=== PATIENT | female | born 1990 | race Caucasian/White ===

== ENCOUNTER → 2018-09-02 | Outpatient (CLI) | payer OTHER ==
[~2018-09-02] MED LIST: PREN-127 PO
[2018-09-02 08:56] LABS: PLATELET COUNT, AUTOMATED 171 K/uL (150-450)
== END ==
LOC: LAB 07:53
PROVIDERS: ATTEND Obstetrics & Gynecology
DX: Z34.90 Encounter for supervision of normal pregnancy, unspecified, unspecified trimester (principal)
CPT/HCPCS: 36415; 81001; 85025; 86592; 86703; 86762; 86850; 86900; 86901; 87088; 87340

== ENCOUNTER → 2018-12-12 | Outpatient (CLI) | payer OTHER ==
--- NOTE | 2018-12-12 12:53 | RADIOLOGY IMAGING REPORT ---
FACILITY: [facility] PATIENT NAME: Josi Hobson : 1990 MR: [id number] V: [id number] EXAM DATE: ORDERING PHYSICIAN: LISA MURRAY TECHNOLOGIST: [place] [facility] [place] Josi Hobson : 1990 Visit/Account:[id number] Date of Sevice: 12/12/2018 EXAMINATION: Transabdominal OB Ultrasound >14 wks with Anatomic Survey 12/12/2018 10:10 AM History: anatomy COMPARISON: None FINDINGS: Intrauterine gestations: one presentation: breech heart rate: 147 bpm Amniotic fluid index: 13.9 cm Largest amniotic fluid pocket 3.9 cm Placenta: Posterior and right lateral without previa. Placental cord insertion is normal. Uterus: gravid, otherwise normal Maternal adnexa: negative Cervix: closed Gestational Parameters: BPD: 5.1 cm 21 weeks 4 days, 53rd percentile HC: 19.4 cm 21 weeks 5 days, 47th percentile AC: 17.7 cm 22 weeks 5 days, 79th percentile FL: 3.7 cm 22 weeks 0 days, 58th percentile Average ultrasound age (AUA): 22 weeks 0 days Estimated gestational age by LMP: 21 weeks 3 days Estimated weight (EFW): 484 grams +/- 71 grams EFW for LMP percentile: 83 Anatomic Survey: Intracranial structures, nose and lips, 4-chamber heart and outflow tracts, stomach, kidneys, urinary bladder, spine, 3-vessel cord and cord insertion are unremarkable. Two upper and two lower extremiti es visualized. IMPRESSION: 1. Single live intrauterine gestation; estimated ultrasound age 22 weeks 0 days (ALEE 04/17/2019), 4 da ys ahead of clinical dates which is within range of error. 2. Unremarkable anatomic survey. Report Dictated By: Checo Diallo MD at 12/12/2018 12:39 PM Report E-Signed By: Checo Diallo MD at 12/12/2018 12:48 PM WSN:COSTA
== END ==
LOC: RAD 09:58
PROVIDERS: ATTEND Obstetrics & Gynecology
DX: Z02.9 Encounter for administrative examinations, unspecified (principal)

== ENCOUNTER → 2019-01-29 | Outpatient (CLI) | payer OTHER ==
[~2019-01-29] MED LIST changes: +DIPH0.5S2 IM
[2019-01-29 16:47] LABS: PLATELET COUNT, AUTOMATED 193 K/uL (150-450)
== END ==
LOC: LAB 15:24
PROVIDERS: ATTEND Obstetrics & Gynecology
DX: Z34.03 Encounter for supervision of normal first pregnancy, third trimester (principal)
CPT/HCPCS: 36415; 82950; 85025

== ENCOUNTER 2019-03-09 11:47 | Outpatient (CLI) | payer OTHER ==
[2019-03-09 12:08] VITALS: BP 123/68
[2019-03-09 12:42] LABS: PLATELET COUNT, AUTOMATED 164 K/uL (150-450)
[2019-03-09] MEDS ORDERED: LR(*) 1000 ML BAG 1,000 ML IV PRN (14:00)
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
== END 2019-03-09 15:15 | disposition home or self-care (01) ==
LOC: OB 11:47 → UNDOADMIN 11:47 → OB 11:47 → L&D 11:47 → UNDODISIN 15:15 → EDSTATUS 03-11 06:48
PROVIDERS: ATTEND Obstetrics & Gynecology
DX: Z34.03 Encounter for supervision of normal first pregnancy, third trimester (principal); V43.52XA Car driver injured in collision with other type car in traffic accident, initial encounter; Y92.414 Local residential or business street as the place of occurrence of the external cause
CPT/HCPCS: 36415; 59025; 85025; 86850; 86900; 86901; 99213; J7120

== ENCOUNTER → 2019-03-25 | Outpatient (CLI) | payer OTHER | LOC: LAB 15:20 | PROVIDERS: ATTEND Obstetrics & Gynecology | DX: Z36.85 Encounter for antenatal screening for Streptococcus B (principal) | CPT/HCPCS: 87081 ==

== ENCOUNTER 2019-04-22 16:17 | Inpatient (IN) | payer OTHER ==
[~2019-04-22] VITALS: Ht 167.6 cm; Wt 65.8 kg
[2019-04-22] MEDS ORDERED: OXYTOCIN 30 UNIT/NS 500 ML 500 ML IV PRN (16:21)
[2019-04-22] MEDS ORDERED: FAMOTIDINE(*) 20MG/50ML PREMIX 50 ML IVPB PRN (16:21)
[2019-04-22] MEDS ORDERED: DLR(*) 1000 ML BAG 1,000 ML IV SCH (16:21)
[2019-04-22] MEDS ORDERED: fentaNYL CITR 100 MCG/2 ML AMP IVP PRN (16:25)
[2019-04-22] MEDS ORDERED: LIDOCAINE 1% LOCAL 300 MG/30ML INJ PRN (16:25)
[2019-04-22] MEDS ORDERED: LIDOCAINE/SOD BICARB 8.4% SYR SC PRN (16:25)
[2019-04-22] MEDS ORDERED: FLUSH 10 ML SYR IVP PRN (16:25)
[2019-04-22] MEDS ORDERED: METOCLOPRAMIDE 10 MG/2 ML SDV IVP PRN (16:25)
[2019-04-22 16:46] LABS: PLATELET COUNT, AUTOMATED 154 K/uL (150-450)
--- NOTE | 2019-04-22 17:16 | History & Physical ---
History of Present Illness EDC per LMP: Apr 21, 2019 Estimated Gestational Age: 40.1 Chief Complaint Induction for low heart rate baseline History of Present Illness 28-year-old at 40w1d presented to clinic for routine OB visit. During that visit the heart tones were noted to be 110. She was placed on the monitor which confirmed baseline 110bpm with no accels, no decels and moderate variability. She reports good movement. She has been having contractions over the past 2 days. She also notes diarrhea since yesterday. She has some nausea but no vomiting or epigastric pain. She denies vaginal bleeding or vaginal discharge. GBS negative. Her is otherwise uncomplicated. History Patient's Blood Type: A Positive Rubella Status: Immune Group B Strep Screen: Negative Obstetrical History: Primip Past Medical History: PMH: None PSH: Tonsillectomy Allergies: Coded Allergies: ceftriaxone (Unverified Allergy, Unknown, hives/itchy, 02/05/18) latex (Unverified Allergy, Unknown, Inflamation and rash, 02/05/18) Social History: Denies alcohol, tobacco or recreational drug. Family History: Patient reports no known family medical history. Med Rec Home Meds Reported Medications Vits W-Ca,Fe,Fa(<1MG) ( VITAMINS) 1 Each Tablet, 1 EACH PO DAILY, TAB 09/02/18 Review of Systems Constitutional: No Fever Neurological: No Syncope Eyes: No Vision Change Cardiovascular: No Chest Pain Respiratory: No Shortness of Breath Gastrointestinal: Nausea; No Vomiting; Diarrhea Genitourinary: No Dysuria Musculoskeletal: No Pain Psychiatric: No Depression, No Anxiety Exam General Exam Vital Signs Weight 163 lbs 2 oz / 73.06802 kg Temperature 98.8 F / 37.11 C - Temporal Blood Pressure 114/80 Sitting, Right Arm Pulse Oximetry 96%, ra General Apperance: Alert/Awake/No Acute Distress Neuro: No Gross deficits Eyes: Normal Extraocular Movement & Vison Cardiovascular: Regular Rate and Rhythm Respiratory: No Respiratory Distress, Clear to Auscultation Abdomen: Gravid - Non-Tender : Normal Musculoskeletal: No Weakness/Pain Extremities: No Cyanosis,Clubbing or Edema Integumentary: Skin Intact without Lesions or Rash Psychological: Alert & Oriented X3, Appropriate Mood & Affect Cervical Dialation: 3 Cervical Effacement (%): 80 Cervical Consistency: Moderate Cervical Position: Posterior Station: -2 Presentation: Vertex Uterine Contractions(Q min): 5 Uterine Contraction Strength: Mild UC Resting Tone: Soft Fetus Heart Tones: 110 Heart Tone Variabilty: Moderate FHT Accelerations: 15X15 FHT Decelerations: None Medical Decision Making Data Points Result Diagram: 04/22/19 1632 Pre-Admit Course Medical Record Review: Yes VTE Prophylasis: Adult Deep Vein Thrombosis/Pulmonary: No Pharmacological Contraindicati: Pt at Low Risk for VTE Mechanical Contraindications: Pt at Low Risk for VTE Assessment and Plan Problems: (1) bradycardia Assessment & Plan: 28-year-old at 40w1d presented to clinic for routine OB visit. During that visit the heart tones were noted to be 110. She was placed on the monitor which confirmed baseline 110bpm with no accels, no decels and moderate variability. She reports good movement. She was given the option of performing a biophysical profile, however, she is already scheduled for an induction tomorrow. I have recommended she come in today for induction if the baby tolerates it. Either way, she is amenable to moving towards delivery tonight. (2) 40 weeks gestation of LISA MURRAY MD Apr 22, 2019 17:16
[2019-04-22] MEDS: LR(*) 1000 ML BAG 1,000 ML IV SCH ×2 (17:31→20:38)
[2019-04-22] MEDS ORDERED: ePHEDrine 25 MG/5 ML DISP.SYR IVP ONE ×2 (20:10→23:16)
[2019-04-22] MEDS ORDERED: ONDANSETRON 4 MG/2 ML VIAL ONE (20:15)
[2019-04-22] MEDS ORDERED: fentaNYL CITR 100 MCG/2 ML AMP ONE (20:15)
[2019-04-22] MEDS ORDERED: FENTANYL/ROPIVACAINE 100ML BAG 100 ML ONE (20:15)
[2019-04-22] MEDS ORDERED: BUPIVACAINE 0.25% MPF INJ ONE (20:15)
--- NOTE | 2019-04-22 21:17 | Anesthesia OB Pre-Anes Eval ---
History of Present Illness Anesthesia Start Date: Apr 22, 2019 Anesthesia Start Time: 20:15 OB Anesthesia Diagnosis: induction - medical EDC: Apr 21, 2019 : 1 Para: 0 Pain Ratin Heart Tones: 122 Result Diagram: 04/22/19 1632 Height (Inches): 66 Weight (Pounds): 145 Past Medical History Medical History: no pertinent history Surgical History: noncontributory, tonsillectomy Previous Anesthesia: general Attended Childbirth Classes?: Yes Hx Anesthesia Reactions: No Hx Family Anesthesia Reaction: No Current Medications: pitocin Home Meds Reported Medications Vits W-Ca,Fe,Fa(<1MG) ( VITAMINS) 1 Each Tablet, 1 EACH PO DAILY, TAB 09/02/18 Allergies: Coded Allergies: ceftriaxone (Unverified Allergy, Unknown, hives/itchy, 02/05/18) latex (Unverified Allergy, Unknown, Inflamation and rash, 02/05/18) Anesthesia OB ROS Neurological: No migraines/headaches, No seizures, No neuropathy, No other ENT: Denies Tooth caps, Denies Loose teeth, Denies Chipped teeth, Denies Dentures, Denies Bridges, Denies Retainers, Denies Veneers, Denies Implants, Denies Tongue ring, Denies Other Pulmonary: No asthma, No smoker (pks/day/yrs), No other Airway Class: ll Cardiovascular ROS: No edema, No arrhythmia, No other GI ROS: clear liquids Last Solids Date: Apr 22, 2019 Last Solids Time: 17:30 ROS: No Herpes, No STD(s), No Liver Disease, No Renal Disease, No Other Endocrine ROS: No diabetes, No gestational diabetes, No thyroid disorder, No other Musculoskeletal ROS: No low back pain, No low back injury, No scoliosis, No other ASA Classification: 2 Assessment and Plan Anesthesia Plan: AMADA COBURN CRNA Apr 22, 2019 21:17
--- NOTE | 2019-04-22 21:19 | Procedure Note ---
Anesthetic Placement Note Anesthesia Plan: CSE Permit for Anesthesia Signed: Yes Anesthesia Technique: Patient Sitting Anesthesia Prep: Chlorhexidine Interspace: L 3-4 Local Anesthetic: 1% Lidocaine Amount Local - cc's: 3 Anesthesia Needle: 17g Touhritu/Schliff Anesthesia Attempts: 1 Loss of Resistance: Normal Saline Depth of TIFFANY (cm): 4 Epidural Needle Placement: No CSF, No Blood, No Parasthesia Intrathecal Needle: 27 Gauge Pencan Cerebral Spinal Fluid: Yes, Clear Catheter Insertion (cm): 4 (8 cm @ skin) Catheter Type: Erickson - Spring Wound Epidural Dressing: Tegaderm, Tape Anesthesia Tray: Lot Number ([id number]), Expiration Date (03/27), Reference Number ([id number]) Anesthesia Medications: Intrathecal Dose: mcg Fentanyl (10), mg Marcaine MPF (2.5), Time (2026) Epidural Test Dose: 1.5 Lido/Epi (1:200,000), Dose - mL (3), Time (2028), Negative Epidural Infusion: 0.2% Ropivicaine, With Fentanyl 2mcg/ml, Start Time: (2044) Epidural Pump Setting: Bolus Dose - mL (8), Lockout - Minutes (20), Maintenance Rate - mL/hr (6), Maximum per Hour - mL (30) Complications: None AMADA WITT CRNA Apr 22, 2019 21:19
--- NOTE | 2019-04-22 21:20 | Labor Progress Note ---
Labor Subjective Progress Notes Subjective Pt received an epidural and is now comfortable. She has no complaints. Labor Objective Vital Signs VS reviewed, last BP 119/70 Cervical Dialation: 5 Cervical Effacement (%): 90 Cervical Consistency: Soft Cervical Position: Mid Station: 0 Presentation: Vertex Uterine Contractions(Q min): 3 Uterine Contraction Strength: Strong UC Resting Tone: Soft Fetus Heart Tones: 115 Heart Tone Variabilty: Moderate FHT Accelerations: 15X15 FHT Decelerations: None General Exam General Appearance: Alert/Awake/No Acute Distress Respiratory: No Respiratory Distress Abdomen: Gravid - Non-Tender : Normal Musculoskeletal: No Weakness/Pain Extremities: No Cyanosis,Clubbing or Edema Integumentary: Skin Intact without Lesions or Rash Psychological: Alert & Oriented X3, Appropriate Mood & Affect Other Result Diagram: 04/22/19 1632 Assessment and Plan Problems: (1) bradycardia Assessment & Plan: AROM with blood tinged fluid which may simply be due to b loody show. Will monitor for fluid color as it continues to pass. FHT are still 115bpm baseline, but otherwise very reassuring. Will continue pitocin and anticipate if fetus continues to tolerate labor. (2) 40 weeks gestation of LISA MURRAY MD Apr 22, 2019 21:20
[2019-04-23] VITALS (13 sets, daily range): BP systolic 94–114; BP diastolic 49–86
--- NOTE | 2019-04-23 00:08 | Labor Progress Note ---
Labor Subjective Progress Notes Subjective Pt is feeling slightly more pressure. No other concerns. Her epidural is working well. Labor Objective Vital Signs VS reviewed, has required a couple of doses of ephedrine since her epidural for hypotension but is always responsive Vaginal Discharge/Fluid?: Bloody Show, Clear Fluid Cervical Dialation: 7 Cervical Effacement (%): 100 Cervical Consistency: Soft Cervical Position: Mid Station: 0 Presentation: Vertex Uterine Contractions(Q min): 3 Uterine Contraction Strength: Strong UC Resting Tone: Soft Fetus Heart Tones: 115 Heart Tone Variabilty: Moderate FHT Accelerations: 15X15 FHT Decelerations: None FHT Category: I General Exam General Appearance: Alert/Awake/No Acute Distress : Normal Musculoskeletal: No Weakness/Pain Extremities: No Cyanosis,Clubbing or Edema Integumentary: Skin Intact without Lesions or Rash Psychological: Alert & Oriented X3, Appropriate Mood & Affect Other Result Diagram: 04/22/19 1632 Assessment and Plan Problems: (1) bradycardia Assessment & Plan: FHT are still in 115bpm baseline and reassuring otherwise. Pt has progressed to 7cm. Continue to monitor for cervical change. Anticipate . (2) 40 weeks gestation of LISA MURRAY MD Apr 23, 2019 00:08
--- NOTE | 2019-04-23 03:26 | Labor Progress Note ---
Labor Subjective Progress Notes Subjective Pt is still comfortable with epidural and has no other concerns. Labor Objective Vital Signs VS reviewed Vaginal Discharge/Fluid?: Green Tinged Fluid Cervical Dialation: 9 Cervical Effacement (%): 100 Cervical Consistency: Soft Cervical Position: Mid Station: 0 Presentation: Vertex Uterine Contractions(Q min): 3 Uterine Contraction Strength: Strong (>200MVU) UC Resting Tone: Soft Fetus Heart Tones: 115 Heart Tone Variabilty: Moderate FHT Accelerations: 15X15 FHT Decelerations: Early FHT Category: I General Exam General Appearance: Alert/Awake/No Acute Distress : Normal Musculoskeletal: No Weakness/Pain Extremities: No Cyanosis,Clubbing or Edema Integumentary: Skin Intact without Lesions or Rash Psychological: Alert & Oriented X3, Appropriate Mood & Affect Other Result Diagram: 04/22/19 1632 Assessment and Plan Problems: (1) bradycardia Assessment & Plan: FHT are still in 115bpm baseline and reassuring otherwise. Pt progressed to 9cm at 0030hrs. After three hours of laboring, she is now anterior lip. The baby's vertex feels ROT and was attempted to be rotated but continues to rotate back. An IUPC was placed and reveals >200MVU. An FSE was then placed and the patient was transitioned to [id number] position. She is doing well in this position for now. Will allow her to labor in this position and if no change, will likely require for arrest of descent. I have briefly discussed these options with the patient and all of her questions were addressed. (2) 40 weeks gestation of LISA MURRAY MD Apr 23, 2019 03:26
[2019-04-23] MEDS ORDERED: LIDO/EPI 2% MPF 1:200,000 20ML ONE (03:31)
[2019-04-23] MEDS ORDERED: OXYTOCIN 10 UNIT/ML SDV ONE ×2 (03:37)
[2019-04-23] MEDS ORDERED: KETOROLAC 30 MG/ML VIAL ONE (03:43)
[2019-04-23] MEDS ORDERED: MORPHINE PF 5 MG/10 ML AMP ONE (03:57)
[2019-04-23] MEDS ORDERED: NS 0.9% IRRIGATION 1000ML PLCT IR ONE (04:49)
[2019-04-23] MEDS ORDERED: MAGNESIUM HYDROXIDE* 30ML UDCP PO PRN (05:00)
[2019-04-23] MEDS ORDERED: LANOLIN OINT 7 GM TUBE TP PRN (05:00)
[2019-04-23] MEDS ORDERED: DLR(*) 1000 ML BAG 1,000 ML IV PRN (05:00)
[2019-04-23] MEDS ORDERED: DIPHTH/TETANUS/ACEL. PERTUSSIS IM ONLY ONE (05:00)
[2019-04-23] MEDS ORDERED: ACETAMINOPHEN 325 MG TAB PO PRN (05:00)
[2019-04-23] MEDS ORDERED: INFLUENZA VIRUS VAC 0.5ML SYR IM ONLY ONE (05:00)
[2019-04-23] MEDS ORDERED: ONDANSETRON 4 MG/2 ML VIAL IV PRN (05:00)
[2019-04-23] MEDS ORDERED: PROMETHAZINE 25 MG/ML 1 ML AMP IVP PRN (05:00)
[2019-04-23] MEDS ORDERED: MEASLES,MUMP,RUBELLA VAC 0.5ML SUBQ ONE (05:00)
[2019-04-23] MEDS ORDERED: SIMETHICONE 80 MG CHEW CHEW PRN (05:00)
--- NOTE | 2019-04-23 05:00 | Post Operative Note ---
Operative Note - ELECTRICAL INSPECTOR Operative Day Date: Apr 23, 2019 Physicians Surgeon: Srinivasa Anesthesia: Epidural Diagnosis Pre-Op Diagnosis: IUP at 40w2d with arrest of descent Post-Op Diagnosis: Same Delivery of viable male at 0415hrs, 3410g, Apgars 9/9 Procedure Procedure(s): PLTCD Specimen Removed:(Maybe N/A): None Fluids Fluids: IVF: 900cc UOP: 100cc Estimated Blood Loss: 750cc LISA MURRAY MD Apr 23, 2019 05:00
--- NOTE | 2019-04-23 05:15 | Anesthesia Progress Note ---
Progress/Maintenance Anesthesia Note Date: Apr 23, 2019 Assessment and Plan Anesthesia Plan: CSE Assessment To OR for arrested decent. Epidural working well. Anesthesia Stop Day: Apr 23, 2019 Anesthesia Stop Time: 04:58 Epidural Catheter Removal: Yes, Removed by: (Andreas OLSEN) Removal Date: Apr 23, 2019 Removal Time: 04:50 Condition To PACU. Stable. Reort to AMADA WILSON CRNA Apr 23, 2019 05:15
--- NOTE | 2019-04-23 05:37 | OPERATIVE REPORT 1 ---
EVENT DATE: April 23, 2019 SURGEON: Kelsi Bernabe MD ANESTHESIA: Epidural by Amber Mar CRNA. PREOPERATIVE DIAGNOSIS Intrauterine at 40 weeks and 2 days with arrest of descent. POSTOPERATIVE DIAGNOSES 1. Intrauterine at 40 weeks and 2 days with arrest of descent. 2. Delivery of a viable male at 0415 hours, weighing 3410 g or 7 pounds 8.3 ounces, with Apgars of 9 at one minute and 9 at five minutes. PROCEDURE PERFORMED Primary low transverse delivery. SPECIMENS REMOVED None. ADDITIONAL FINDINGS LOP position. INTRAVENOUS FLUIDS 900 mL. URINE OUTPUT 100 mL. ESTIMATED BLOOD LOSS 750 mL. INDICATIONS FOR PROCEDURE This patient is a 28-year-old 1, para 0, who presented to clinic for a routine OB visit. During that time, she was noted to have heart tones with a baseline of 110, which was extremely low for her. Otherwise, the baby had reassuring status. She had previously been scheduled for an induction the next day and was therefore admitted for induction due to low baseline of the heart tones. At the time of presentation, she was noted to be 3/80/-2, and was ashley mildly every five minutes. She was started on Pitocin slowly, and the Pitocin was increased throughout the evening. She did receive an epidural for anesthesia. She was able to progress to 9 cm by 0030 hours on 04/23/2019. She then was allowed to labor, and after three hours had minimal change and remained an anterior lip. The was noted to be in the OT position and was attempted to be rotated, but unsuccessfully. She did have an IUPC and FSE placed, and multiple attempts at position changes to improve the situation; however, she was unable to progress beyond an anterior lip. Just prior to making the decision for a delivery, the heart tones then started having recurrent late decelerations. Given the whole picture, the patient was then consented for a primary due to arrest of descent. She elected to proceed. DESCRIPTION OF PROCEDURE The patient was properly identified and taken to the operating room. She was placed in the supine position with a leftward tilt. She had a Mcfarland catheter previously placed as well as an epidural previously placed. The abdomen was prepped and draped in the normal sterile fashion for a lower abdominal surgery. Adequate anesthesia was confirmed. A Pfannenstiel incision was planned with a marker and then made with a scalpel. The incision was carried down sharply to the level of the rectus fascia. The fascia was then nicked in the midline. The incision was extended bilaterally to accommodate delivery of the . The rectus fascia was then from the underlying rectus muscle superiorly to the infraumbilical plane. The peritoneum was then entered in a blunt fashion, and the incision was extended to allow for delivery of the infant. A bladder blade was then placed, and a low transverse incision was made on the lower uterine segment. This was extended in cephalocaudad manner. The 's vertex was noted to be in the EDDIE position, and the infant's head was easily lifted out of the pelvis. The 's vertex was delivered without any difficulty, followed by the anterior shoulder and the posterior shoulder. The remainder of the was easily delivered. The had spontaneous cry and spontaneous movement of all extremities. The 's cord was clamped x2 after 30 seconds and clamped in the middle. Cord blood was then obtained. Placenta was subsequently manually without difficulty. The uterus was exteriorized and cleared of any remaining clots or debris. The uterine incision was then reapproximated using an 0 Vicryl, working from one apex to the next. A second imbricating layer of 0 Monocryl was then utilized to close the uterine incision with a second layer. The uterus was then replaced and hemostasis was assured along the uterine incision. The paracolic gutters were cleared of clots and debris. The peritoneum was then reapproximated using a 3-0 Monocryl, followed by reapproximation of the rectus muscle in the midline. The rectus muscle was then copiously irrigated. The fascia was closed with an 0 Vicryl working from one apex to the next, and the subcutaneous tissue was cauterized and irrigated. Once it was hemostatic, a 3-0 Vicryl was used to reapproximate the subcutaneous tissue. The skin was then closed with Insorb oswald. A Primapore dressing was then placed, followed by pressure dressing. All sponge, needle, and instrument counts were correct at the end of this procedure. The patient tolerated this procedure well and recovered in Labor and Delivery. SEMAJ
[2019-04-23] MEDS ORDERED: METOCLOPRAMIDE 10 MG/2 ML SDV ONE (06:13)
[2019-04-23] MEDS ORDERED: FAMOTIDINE(*) 20MG/50ML PREMIX 50 ML IVPB ONE (06:13)
[2019-04-23] MEDS ORDERED: LR(*) 1000 ML BAG 1,000 ML ONE (06:14)
--- NOTE | 2019-04-23 06:14 | NUR ---
PT. RECEIVED 400 MLS OF D5LR WITH PIT. WHILE IN PACU AND A NEW D5 WITHOUT PIT WAS HUNG.
[2019-04-23] MEDS ORDERED: NALBUPHINE HCL 10 MG/ML AMP IVP PRN (06:40)
[2019-04-23] MEDS ORDERED: CLINDAMYCIN(*) 900 MG/NS 50 ML 50 ML ONE (07:52)
[2019-04-23] MEDS: FAMOTIDINE 20 MG TAB PO SCH ×2 (09:00→21:44)
[2019-04-23] MEDS: DOCUSATE CALCIUM 240 MG CAP PO SCH ×2 (09:00→21:44)
[2019-04-23] MEDS: KETOROLAC 30 MG/ML VIAL IVP SCH ×3 (10:00→21:44)
--- NOTE | 2019-04-23 14:22 | Anesthesia Post Eval Note ---
Anesthesia Post Eval Note Vital Signs 04/23/19 04/23/19 04/23/19 04/23/19 05:55 06:45 07:29 07:30 Temp 97.5 Pulse 85 Resp 18 B/P (MAP) 108/59 (75) Pulse Ox 99 O2 Delivery Nasal Cannula O2 Flow Rate 2.0 Pt able to participate in Eval: Yes Cardiovascular Status: Satisfactory Respiratory Status: Satisfactory Pain Managment: Satisfactory PO Nausea/Vomiting: Satisfactory Temperature Management: Satisfactory Mental Status: Satisfactory, Alert, Oriented X3 Post-Op Hydration Status: Satisfactory, Tolerating PO Well, Voiding w/o Difficulty Anesthesia Type: CSE AMADA WITT CRNA Apr 23, 2019 14:22
--- NOTE | 2019-04-23 16:44 | OB/GYN Progress Note ---
OB Subjective Progress Notes Subjective She is doing very well. She has ambulated well twice. Her Telles catheter is still in. She is having normal lochia. She is tolerating food without difficulty. She denies any chest pain or shortness of breath. OB Objective Physical Exam Vital Signs Date Time Temp Pulse Resp B/P (MAP) Pulse Ox O2 Delivery O2 Flow Rate FiO2 04/23/19 07:30 85 99 04/23/19 07:29 108/59 (75) 04/23/19 06:45 18 Nasal Cannula 2.0 04/23/19 05:55 97.5 Intake and Output 04/23/19 07:02 Intake Total 5250 ml Output Total 600 ml Balance 4650 ml Intake Oral 0 ml Other 5250 ml Output Urine Total 100 ml Emesis 500 ml General Appearance: Alert/Awake/No Acute Distress Neurological: No Gross deficits Respiratory: No Respiratory Distress Extremities: No Cyanosis,Clubbing or Edema Integumentary: Skin Intact without Lesions or Rash Psychological: Alert & Oriented X3, Appropriate Mood & Affect Result Diagram: 04/22/19 1632 Assessment and Plan Problems: (1) Status post delivery Assessment & Plan: POD#0 s/p PLTCD. No concerns. Will discharge telles catheter. Routine orders. LISA MURRAY MD Apr 23, 2019 16:44
[2019-04-23 18:34] LABS: PLATELET COUNT, AUTOMATED 168 K/uL (150-450)
[2019-04-24] MEDS: IBUPROFEN 800 MG TAB PO SCH ×3 (04:22→20:19)
[2019-04-24 04:30] VITALS: BP 104/65
[2019-04-24 07:55] VITALS: BP 107/63
[2019-04-24] MEDS: FAMOTIDINE 20 MG TAB PO SCH ×2 (08:43→20:19)
[2019-04-24] MEDS: oxyCODON/ACET (*)5/325MG (CII) 1 TAB TAB PO PRN ×3 (08:43→22:52)
[2019-04-24] MEDS: DOCUSATE CALCIUM 240 MG CAP PO SCH ×2 (08:44→20:19)
[2019-04-24 11:17] VITALS: BP 112/63
[2019-04-24 15:45] VITALS: BP 111/68
--- NOTE | 2019-04-24 16:00 | OB/GYN Progress Note ---
OB Subjective Progress Notes Subjective Doing well. Pain controlled with oral medications. Tolerating regular diet. Ambulating. Voiding. Normal lochia. No preeclampsia symptoms. OB Objective Physical Exam Vital Signs Date Time Temp Pulse Resp B/P (MAP) Pulse Ox O2 Delivery O2 Flow Rate FiO2 04/24/19 11:17 98.0 93 16 112/63 (79) 94 Room Air 04/23/19 06:45 2.0 Intake and Output 04/24/19 07:03 Intake Total 600 ml Output Total 2900 ml Balance -2300 ml Intake Oral 600 ml Output Urine Total 2900 ml # Voids 2 General Appearance: Alert/Awake/No Acute Distress Neurological: No Gross deficits Cardiovascular: Normal Rhythm & Peripheral Pulses, Regular Rate and Rhythm Respiratory: No Respiratory Distress, Clear to Auscultation Abdomen: Soft, Non-Tender, Non-Distended, Fundus Firm Incision: Clean, Dry, Intact Extremities: No Cyanosis,Clubbing or Edema Integumentary: Skin Intact without Lesions or Rash Psychological: Alert & Oriented X3, Appropriate Mood & Affect Result Diagram: 04/23/19 1824 Assessment and Plan Problems: (1) Status post delivery Assessment & Plan: POD#1 s/p PLTCD. No concerns. Continue routine postop cares. Plan discharge home tomorrow. LISA MURRAY MD Apr 24, 2019 16:00
[2019-04-24] MEDS ORDERED: OXYC-865 PO (16:01)
[2019-04-24] MEDS ORDERED: IBUP800T37 PO (16:01)
[2019-04-24 19:20] VITALS: BP 125/71
[2019-04-24 22:45] VITALS: BP 107/70
[2019-04-25 03:54] VITALS: BP 108/71
[2019-04-25] MEDS: IBUPROFEN 800 MG TAB PO SCH (03:55)
[2019-04-25] MEDS: oxyCODON/ACET (*)5/325MG (CII) 1 TAB TAB PO PRN (03:58)
--- NOTE | 2019-04-25 08:18 | OB/GYN Progress Note ---
OB Subjective Progress Notes Subjective Doing well. Pain controlled with oral medications. Tolerating regular diet. Ambulating. Voiding. Normal lochia. No preeclampsia symptoms. Breast feeding is doing better. OB Objective Physical Exam Vital Signs Date Time Temp Pulse Resp B/P (MAP) Pulse Ox O2 Delivery O2 Flow Rate FiO2 04/25/19 03:54 97.3 73 16 108/71 (83) Room Air 04/24/19 15:45 96 04/23/19 06:45 2.0 Intake and Output 04/25/19 07:03 Intake Total 600 ml Balance 600 ml Intake Oral 600 ml # Voids 5 General Appearance: Alert/Awake/No Acute Distress Neurological: No Gross deficits Cardiovascular: Normal Rhythm & Peripheral Pulses, Regular Rate and Rhythm Respiratory: No Respiratory Distress, Clear to Auscultation Abdomen: Soft, Non-Tender, Non-Distended, Fundus Firm Incision: Clean, Dry, Intact Extremities: No Cyanosis,Clubbing or Edema Integumentary: Skin Intact without Lesions or Rash Psychological: Alert & Oriented X3, Appropriate Mood & Affect Result Diagram: 04/23/19 1824 Assessment and Plan Problems: (1) Status post delivery Assessment & Plan: POD#2 s/p PLTCD. Meeting milestones. Desires discharge to home today. Discussed routine expectations. Questions answered. Follow up in clinic in 1-2wks for check. LISA MURRAY MD Apr 25, 2019 08:18
--- NOTE | 2019-04-25 08:19 | OB/GYN Discharge Summary ---
Discharge Summary Reason for Hosp/Final Diag: (1) Status post delivery Hospital Course & Plan: POD#2 s/p PLTCD. Meeting milestones. Desires discharge to home today. Discussed routine expectations. Questions answered. Follow up in clinic in 1-2wks for check. 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
[2019-04-25 08:45] VITALS: BP 111/67
[2019-04-25] MEDS: DOCUSATE CALCIUM 240 MG CAP PO SCH (08:55)
[2019-04-25] MEDS: FAMOTIDINE 20 MG TAB PO SCH (08:55)
== END 2019-04-25 10:55 | disposition home or self-care (01) | DRG 788 ==
LOC: OB 16:17 → OBSVTOIN 16:17 → OB 04-23 06:00
PROVIDERS: ADMIT Obstetrics & Gynecology; ATTEND Obstetrics & Gynecology
PROC: 3E033VJ Introduction of Other Hormone into Peripheral Vein, Percutaneous Approach (ICD-10-PCS; 2019-04-22)
PROC: 10H00YZ Insertion of Other Device into Products of Conception, Open Approach (ICD-10-PCS; 2019-04-23)
PROC: 10907ZC Drainage of Amniotic Fluid, Therapeutic from Products of Conception, Via Natural or Artificial Opening (ICD-10-PCS; 2019-04-23)
PROC: 4A1H74Z Monitoring of Products of Conception, Cardiac Electrical Activity, Via Natural or Artificial Opening (ICD-10-PCS; 2019-04-23)
PROC: 10D00Z1 Extraction of Products of Conception, Low, Open Approach (ICD-10-PCS; principal; 2019-04-23 03:51)
DX: O76 Abnormality in fetal heart rate and rhythm complicating labor and delivery (principal); O62.1 Secondary uterine inertia; Z3A.40 40 weeks gestation of pregnancy; Z37.0 Single live birth
CPT/HCPCS: 36415; 85025; 86850; 86900; 86901; J1885; J2270; J2590; J7120